=== PATIENT | male | born 2000 | race Caucasian/White ===

== ENCOUNTER 2020-03-05 01:35 | Emergency (ER) | payer OTHER ==
[~2020-03-05] VITALS: Ht 182.9 cm; Wt 81.7 kg
[~2020-03-05 01:35] MED LIST: NOHOMEMEDICATIONS
[2020-03-05] MEDS ORDERED: IBUPROFEN 800800 MG PO (03:04)
[2020-03-05 03:08] VITALS: BP 129/72
== END 2020-03-05 03:08 | disposition home or self-care (01) ==
LOC: M.ERS 01:35
DX: S60.221A Contusion of right hand, initial encounter (principal); W22.8XXA Striking against or struck by other objects, initial encounter; Y93.89 Activity, other specified; Y92.89 Other specified places as the place of occurrence of the external cause; Y99.8 Other external cause status

== ENCOUNTER 2020-03-26 21:35 | Emergency (ER) | payer OTHER ==
[~2020-03-26] VITALS: Ht 182.9 cm; Wt 81.7 kg
[~2020-03-26 21:35] MED LIST changes: +IBUPROFEN 800800 MG PO
[2020-03-26 22:47] VITALS: BP 135/72
== END 2020-03-26 22:48 | disposition home or self-care (01) ==
LOC: M.ERS 21:35
DX: S60.221A Contusion of right hand, initial encounter (principal); X58.XXXA Exposure to other specified factors, initial encounter; Y93.89 Activity, other specified; Y92.89 Other specified places as the place of occurrence of the external cause; Y99.8 Other external cause status